=== PATIENT | male | born 1945 | race African-American/Black ===

== ENCOUNTER 2021-12-16 10:46 | Emergency (ER) | payer MEDICARE, OTHER ==
[~2021-12-16] VITALS: Ht 172.7 cm; Wt 78.0 kg
[2021-12-16 13:44] VITALS: BP 151/78
== END 2021-12-16 13:56 | disposition home or self-care (01) ==
LOC: ER 10:46
DX: R33.9 Retention of urine, unspecified (principal); Z87.891 Personal history of nicotine dependence; I10 Essential (primary) hypertension
CPT/HCPCS: 99281; A4315

== ENCOUNTER 2025-07-24 07:07 | Emergency (ER) | payer MEDICARE ==
[~2025-07-24] VITALS: Ht 182.9 cm; Wt 92.6 kg
[2025-07-24 07:17] VITALS: O2SAT 97
[2025-07-24 09:26] LABS: CLARITY URINE CLEAR (CLEAR); COLOR URINE DARK YELLOW (YELLOW); GLUCOSE URINE NEGATIVE (NEGATIVE); KETONES URINE NEGATIVE (NEGATIVE); LEUKOCYTE ESTERASE URINE 1+ (NEGATIVE); NITRITE URINE NEGATIVE (NEGATIVE); OCCULT BLOOD URINE 2+ (NEGATIVE); PH URINE 7.0 (4.5-8.0); PROTEIN URINE 2+ (NEGATIVE); SPECIFIC GRAVITY URINE 1.020 (1.005-1.030); UROBILINOGEN URINE 1.0 E.U./dL (0.2-1.0)
[2025-07-24 09:52] LABS: BACTERIA URINE NONE SEEN; RBC URINE TNTC /hpf (0-2); SQUAMOUS EPITHELIAL CELL URINE RARE /lpf (RARE/1+); YEAST URINE NONE SEEN
[2025-07-24 10:05] VITALS: BP 125/75; PULSE 76; RESP 16; TEMP 36.8; O2SAT 100
== END 2025-07-24 10:06 | disposition home or self-care (01) ==
LOC: ER 07:07
DX: R33.9 Retention of urine, unspecified (principal)
CPT/HCPCS: 51702; 81003; 99284